=== PATIENT | male | born 1980 | race Hispanic/Latino ===

== ENCOUNTER 2023-10-22 07:47 | Emergency (ER) | payer BC ==
[2023-10-22] MEDS ORDERED: Boostrix 0.5 ML (Tdap) VIAL (>/=7 yrs of age) ONE (08:49)
[2023-10-22] MEDS ORDERED: Bacitracin 1 PK ONE (08:49)
== END 2023-10-22 09:17 | disposition home or self-care (01) ==
LOC: ERS 07:47
DX: S51.811A Laceration without foreign body of right forearm, initial encounter (principal); W26.8XXA Contact with other sharp object(s), not elsewhere classified, initial encounter; Z23 Encounter for immunization
CPT/HCPCS: 12002; 90471; 90715